=== PATIENT | female | born 1970 | race Caucasian/White ===

== ENCOUNTER 2019-05-02 00:01 | Emergency (ER) | payer OTHER ==
[2019-05-02] MEDS ORDERED: Fentanyl 100 MCG/2 ML VIAL ONE ×2 (00:18→01:00)
[2019-05-02] MEDS ORDERED: Sodium Chloride 0.9% 1,000 ML ONE (00:18)
[2019-05-02] MEDS ORDERED: Ondansetron PF 4 MG/2 ML Vial ONE (00:18)
[2019-05-02] MEDS ORDERED: Meropenem 500 MG VIAL ONE (00:22)
[2019-05-02] MEDS ORDERED: Sodium Chloride 0.9% 250 ML 250 ML ONE (00:26)
[2019-05-02 00:38] LABS: Hemoglobin 11.7 g/dL (12.0-16.0); Hypochromia SLIGHT = 6-15 cells (100X) (0-5/hpf); Lymphocytes 22 % (21-51); MDiff Complete? YES; Mean Corpuscular HGB CONC 30.7 g/dL (32.0-36.0); Mean Corpuscular Hemoglobin 25.7 pg (27.0-31.0); Mean Corpuscular Volume 83.6 fL (78.0-98.0); Mean Platelet Volume 11.3 fL (7.4-10.4); Microcytosis SLIGHT = 6-15 cells (100X) (0-5/hpf); Monocytes 4 % (0-10); Neutrophil 74 % (42-75); Platelet Count 75 thou/uL (130-400); Platelet Morphology Comment Appears Decreased; RBC Distribution Width 15.3 % (11.5-14.5); Red Blood Cell (RBC) Count 4.55 mill/uL (4.20-5.40); White Blood Cell (WBC) Count 2.7 thou/uL (4.8-10.8)
[2019-05-02 00:53] LABS: ALT (SGPT) 25 U/L (8-55); Albumin 3.8 g/dL (3.5-5.0); Alkaline Phosphatase 99 U/L (40-150); Anion Gap 17 mmol/L (10-20); BUN (Urea Nitrogen) 11 mg/dL (7.0-18.7); Bilirubin, Total 1.2 mg/dL (0.2-1.2); Calc. Creatinine Clearance 0 mL/min (70-130); Carbon Dioxide 20 mmol/L (22-29); Chloride 101 mmol/L (98-107); Estimated GFR-MDRD 72; Glucose 391 mg/dL (70-105); Lipase 5 U/L (8-78); Potassium 4.8 mmol/L (3.5-5.1); Protein, Total 7.8 g/dL (6.0-8.3); Sodium 133 mmol/L (136-145)
[2019-05-02] MEDS ORDERED: Lidocaine Viscous Sol 2% 15 ml UD Cup ONE (01:09)
[2019-05-02] MEDS ORDERED: Lidocaine 2% Jelly 5 ML TUBE ONE (01:09)
[2019-05-02] MEDS ORDERED: Benzocaine 20% Spray 60 ML CAN ONE ×2 (01:10→01:24)
[2019-05-02 01:11] LABS: AST (SGOT) 15 U/L (5-34)
--- NOTE | 2019-05-02 08:49 | CT ---
PRELIMINARY REPORT/[facility]/EMERGENCY AFTER HOURS PROCEDURE: EXAM: CT Abdomen and Pelvis Without Contrast EXAM DATE/TIME: 05/02/2019 12:31 AM CLINICAL HISTORY: 48 years old, female; Abdominal pain; Generalized; Prior surgery; Surgery date: 6+ months; Surgery ty pe: Colostomy, cauterization- portal HTN. ; Patient HX: PT with colorectal cancer, colostomy x10 year s; Abdomen has been hurting all over today since around lunch time, it is distended, and n/v TECHNIQUE: Imaging protocol: Computed tomography of the abdomen and pelvis without contrast. Radiation optimizat ion: All CT scans at this facility use at least one of these dose optimization techniques: automated exposure control; mA and/or kV adjustment per patient size (includes targeted exams where dose is matched to clinical indication); or iterative reconstruction. COMPARISON: No relevant prior studies available. FINDINGS: Liver: No solid mass. Gallbladder and bile ducts: No calcified stones. No ductal dilation. Pancreas: No acute pathology. No ductal dilation. Spleen: Advanced splenomegaly at 17 cm. Adrenals: No mass. Kidneys and ureters: No solid mass. No hydronephrosis. Stomach and bowel: See Soft Tissues Finding. Appendix: The appendix is not visualized. Intraperitoneal space: Small volume abdominal and pelvic ascites. Vasculature: No abdominal aortic aneurysm. Lymph nodes: No enlarged lymph nodes. Bladder: Unremarkable as visualized. Reproductive: Uterus has been removed. Bones/joints: Unremarkable. No acute fracture. Soft tissues: Left sided proctocolectomy. Umbilical level colostomy with small parastomal fat contani ng hernia. Dilated stomach and small bowel loops with fluid. Small bowel measuring up to 4.3 cm in di ameter. Decompressed pelvic loops. Findings consistent with partial small bowel obstruction. IMPRESSION: Findings most consistent with mid to distal partial small bowel obstruction. Obstructing mass not see n. Left proctocolectomy with umbilical level ostomy. No free air. Small volume ascites. Splenomegaly. Thank you for allowing us to participate in the care of your patient. Dictated and Authenticated by: Abel Webb MD 05/02/2019 1:02 AM Central Time ([place] & [place]) FINAL REPORT CT OF THE ABDOMEN AND PELVIS WITHOUT CONTRAST: LIZ: 05/02/2019. HISTORY: Abdominal pain. FINDINGS: I agree with the preliminary report. Evaluation of the viscera, bowel, vascular structures, and for lymphadenopathy is markedly limited on this noncontrast-enhanced study. The visualized lung bases ar e unremarkable. Nonspecific small volume free fluid is noted in the perihepatic region. The liver d emonstrates no obvious mass lesion but assessment is limited on noncontrast-enhanced imaging. No mitchell cified gallstones appreciated. Markedly enlarged spleen measures at least 17.7 cm in craniocaudal di mension. There is mild distention of the stomach. Adrenal glands and kidneys grossly unremarkable. There is an ostomy noted in an anterior midline lower abdominal location. There is a parastomal fabrizio ia. There are multiple dilated fluid-filled loops of small bowel within the abdomen/pelvis, suspicio us for a small bowel obstruction, exact transition point uncertain on this exam. There is a questionable colonic wall thickening involving the cecum, ascending colon, and proximal tr ansverse colon. Postoperative changes noted in the pelvis with apparent absence of the distal colon/rectum. There is a retained metallic density in the left lower quadrant. No acute osseous abnormality. IMPRESSION: Markedly limited study without contrast media. There are numerous loops of dilated gas-filled small bowel consistent with small bowel obstruction. The colon in the region of the cecum, ascending colon , and proximal transverse colon appears thickened which may represent nonspecific colitis. There is a parastomal hernia. There is marked splenomegaly. Recommend surgical consultation. Followup imaging with IV and oral contrast is suggested to evaluate for a potential cause of above-described small bowel obstruction. POS: OFF
== END 2019-05-02 01:40 | disposition short-term general hospital (02) ==
LOC: NAV ERS 00:01
DX: K56.609 Unspecified intestinal obstruction, unspecified as to partial versus complete obstruction (principal); K76.6 Portal hypertension; Z85.038 Personal history of other malignant neoplasm of large intestine; Z85.048 Personal history of other malignant neoplasm of rectum, rectosigmoid junction, and anus
CPT/HCPCS: 36415; 74176; 80053; 83605; 83690; 85025; 96361; 96374; 96375; 96376; J2185; J2405; J3010; J7050

== ENCOUNTER 2019-05-14 09:19 | Emergency (ER) | payer OTHER ==
[2019-05-14] MEDS ORDERED: Fentanyl 100 MCG/2 ML VIAL ONE ×2 (09:29→10:35)
[2019-05-14] MEDS ORDERED: Oxymetazoline HCl 0.05% ( 15 ML ) ONE (09:29)
[2019-05-14] MEDS ORDERED: Benzocaine 20% Spray 60 ML CAN ONE (09:29)
[2019-05-14] MEDS ORDERED: Lidocaine Viscous Sol 2% 15 ml UD Cup ONE (09:29)
[2019-05-14] MEDS ORDERED: Sodium Chloride 0.9% 1,000 ML ONE (09:41)
[2019-05-14 10:17] LABS: ALT (SGPT) 21 U/L (8-55); AST (SGOT) 21 U/L (5-34); Albumin 3.7 g/dL (3.5-5.0); Alkaline Phosphatase 81 U/L (40-150); Anion Gap 16 mmol/L (10-20); BUN (Urea Nitrogen) 15 mg/dL (7.0-18.7); Bilirubin, Total 1.2 mg/dL (0.2-1.2); Calc. Creatinine Clearance 0 mL/min (70-130); Calcium 9.5 mg/dL (7.8-10.44); Carbon Dioxide 21 mmol/L (22-29); Chloride 104 mmol/L (98-107); Estimated GFR-MDRD 85; Globulin 3.2 g/dL (2.4-3.5); Glucose 267 mg/dL (70-105); Lipase 5 U/L (8-78); Potassium 3.9 mmol/L (3.5-5.1); Protein, Total 6.9 g/dL (6.0-8.3); Sodium 137 mmol/L (136-145)
[2019-05-14 10:24] LABS: Anisocytosis SLIGHT = 6-15 cells (100X) (0-5/hpf); Eosinophils 1 % (0-10); Hemoglobin 11.8 g/dL (12.0-16.0); Lymphocytes 16 % (21-51); MDiff Complete? YES; Mean Corpuscular HGB CONC 30.4 g/dL (32.0-36.0); Mean Corpuscular Hemoglobin 25.4 pg (27.0-31.0); Mean Corpuscular Volume 83.3 fL (78.0-98.0); Mean Platelet Volume 9.1 fL (7.4-10.4); Monocytes 5 % (0-10); Neutrophil 78 % (42-75); Platelet Count 53 thou/uL (130-400); Platelet Morphology Comment Appears Decreased; RBC Distribution Width 15.4 % (11.5-14.5); Red Blood Cell (RBC) Count 4.64 mill/uL (4.20-5.40)
--- NOTE | 2019-05-14 10:51 | RAD ---
Exam: One view chest 2 views abdomen HISTORY: Abdominal pain FINDINGS: Chest one view: Atherosclerosis of the aortic knob. Normal cardiac silhouette. Lungs and pleural spac es are clear. No pneumothorax or osseous abnormalities Abdomen 2 views: Nasogastric tube terminates in the epigastric region. Nonspecific bowel gas pattern. There is a segment of mildly prominent air-filled loop of small bowel. No differential air-fluid levels. No pneumoperitoneum. No suspicious densities in the abdomen or pelvis. Multiple surgical clip s and coil masses are identified in the abdomen. IMPRESSION: 1. Nonspecific bowel gas pattern. Nonspecific air-filled loop of small bowel in the left hemiabdomen. If there is concern for an obstructive process, consider abdomen and pelvic CT with oral and IV contrast. 2. Acute cardiopulmonary process.
--- NOTE | 2019-05-14 10:53 | RAD ---
Exam: 1 view abdomen HISTORY: Abdominal pain. NG tube placement FINDINGS: Nasogastric tube extends beyond the diaphragm no significant IMPRESSION: Nasogastric tube in the epigastric region.
== END 2019-05-14 11:04 | disposition short-term general hospital (02) ==
LOC: NAV ERS 09:19
DX: K56.609 Unspecified intestinal obstruction, unspecified as to partial versus complete obstruction (principal); R73.03 Prediabetes; K76.6 Portal hypertension; Z85.41 Personal history of malignant neoplasm of cervix uteri; Z85.048 Personal history of other malignant neoplasm of rectum, rectosigmoid junction, and anus; Z79.84 Long term (current) use of oral hypoglycemic drugs; Z79.899 Other long term (current) drug therapy
CPT/HCPCS: 74018; 74022; 80053; 83690; 85025; 96361; 96374; 96376; J3010; J7050

== ENCOUNTER 2019-12-01 00:53 | Emergency (ER) | payer OTHER ==
[2019-12-01] MEDS ORDERED: Ondansetron PF 4 MG/2 ML Vial ONE (02:26)
[2019-12-01] MEDS ORDERED: Morphine 4 MG/ML VIAL ONE (02:26)
[2019-12-01 02:48] LABS: #Lymphocytes 0.4 thou/uL (1.20-3.40); #Monocytes 0.1 thou/uL (0.11-0.59); %Basophils 0.7 % (0.0-1.0); %Eosinophils 0.9 % (0.0-10.0); %Lymphocytes 10.5 % (21.0-51.0); %Monocytes 3.8 % (0.0-10.0); %Neutrophils 84.1 % (42.0-75.0); Anisocytosis SLIGHT = 6-15 cells (100X) (0-5/hpf); Hemoglobin 8.1 g/dL (12.0-16.0); MDiff Complete? YES; Mean Corpuscular HGB CONC 28.2 g/dL (32.0-36.0); Mean Corpuscular Hemoglobin 21.8 pg (27.0-31.0); Mean Corpuscular Volume 77.2 fL (78.0-98.0); Mean Platelet Volume 11.4 fL (7.4-10.4); Microcytosis SLIGHT = 6-15 cells (100X) (0-5/hpf); Ovalocytes SLIGHT = 2-5 cells (100X) (0-1/hpf); Platelet Count 71 thou/uL (130-400); Platelet Morphology Comment Appears Decreased; RBC Distribution Width 18.3 % (11.5-14.5); Red Blood Cell (RBC) Count 3.73 mill/uL (4.20-5.40); White Blood Cell (WBC) Count 3.6 thou/uL (4.8-10.8)
[2019-12-01 02:51] LABS: ALT (SGPT) 19 U/L (8-55); AST (SGOT) 17 U/L (5-34); Albumin 3.1 g/dL (3.5-5.0); Alkaline Phosphatase 103 U/L (40-110); Anion Gap 13 mmol/L (10-20); BUN (Urea Nitrogen) 11 mg/dL (7.0-18.7); Bilirubin, Total 0.7 mg/dL (0.2-1.2); Calc. Creatinine Clearance 0 mL/min (70-130); Calcium 8.7 mg/dL (7.8-10.44); Carbon Dioxide 24 mmol/L (22-29); Chloride 101 mmol/L (98-107); Estimated GFR-MDRD 84; Globulin 3.2 g/dL (2.4-3.5); Glucose 325 mg/dL (70-105); Lipase 4 U/L (8-78); Potassium 4.4 mmol/L (3.5-5.1); Protein, Total 6.3 g/dL (6.0-8.3); Sodium 134 mmol/L (136-145)
[2019-12-01] MEDS ORDERED: Insulin Regular 300 UNITS/3 ML VIAL ONE (04:31)
--- NOTE | 2019-12-01 07:54 | CT ---
PRELIMINARY REPORT/[facility]/EMERGENCY AFTER HOURS PROCEDURE: PROCEDURE: CT Scan Abdomen and Pelvis without IV Contrast Material. HISTORY: Abdomen pain and colorectal neoplasm with colostomy. TECHNIQUE: Axial images were performed with multiplanar reconstructions without IV contrast material. The patient was not given oral contrast material. COMPARISON: None . FINDINGS: Linear scar versus discoid atelectasis at the lung bases. Irregular liver contour consistent with cirrhosis. Splenomegaly at 19 cm. Adrenals and pancreas are unremarkable. Kidneys show no masses or obstruction. Normal biliary tract. Moderate ascites in the abdomen. No pneumoperitoneum. Stranding throughout the mesentery could be r elated to patient's portal hypertension or ascites with peritonitis not excluded. Normal aorta. Some varices upper abdomen. No lymphadenopathy. LEFT lower quadrant colostomy with previous resection of the rectum. No bowel obstruction or inflamm ation. Appendix is not visualized. Pelvis shows no masses. Moderate fluid throughout pelvis. Previous hysterectomy. Normal urinary bl adder. No acute bony abnormality. Stranding in the subcutaneous fat both flanks and lower abdomen and pelvis may be related to dependen t edema . IMPRESSION: Cirrhosis with splenomegaly and ascites. No bowel obstruction or inflammation. Previous resection of the rectum with colostomy LEFT lower quadrant. Dependent edema both flanks and lower abdomen and pelvis. No other acute change identified. ELECTRONICALLY SIGNED BY: Obed Goss MD Dec 01, 2019 4:05:23 AM CDT This report is intended for review by the ordering physician only, in accordance of law. If you recei ve this report in error, please call [facility] at [phone]. FINAL REPORT EMERGENT AFTER HOURS CT OF THE ABDOMEN AND PELVIS WITH CONTRAST: COMPARISON: 05/14/2019. FINDINGS/IMPRESSION: I agree with the findings and impression given in the preliminary report per [facility] physici an. There is cirrhosis with sequelae of portal hypertension. The amount of ascites and soft tissue anasarca has worsened compared to the prior examination.
[2019-12-01] MEDS ORDERED: Iopamidol 370 76% 100 ML VIAL ONE (09:00)
== END 2019-12-01 06:10 | disposition home or self-care (01) ==
LOC: NAV ERS 00:53
DX: R18.8 Other ascites (principal); K74.60 Unspecified cirrhosis of liver; D64.9 Anemia, unspecified; R11.2 Nausea with vomiting, unspecified; Z87.891 Personal history of nicotine dependence
CPT/HCPCS: 74177; 80053; 83690; 85025; 96374; 96375; J1815; J2270; J2405; Q9967

== ENCOUNTER 2020-05-28 09:01 | Emergency (ER) | payer OTHER ==
[~2020-05-28 09:01] MED LIST: Iopamidol 370 76% 100 ML VIAL ONE
[2020-05-28] MEDS ORDERED: Ondansetron PF 4 MG/2 ML Vial ONE (09:24)
[2020-05-28] MEDS ORDERED: Morphine 4 MG/ML VIAL ONE ×2 (09:24→11:11)
[2020-05-28 10:13] LABS: #Eosinphils 0.1 thou/uL (0.0-0.7); #Lymphocytes 0.4 thou/uL (1.20-3.40); #Monocytes 0.2 thou/uL (0.11-0.59); #Neutrophils 2.5 thou/uL (1.40-6.50); %Basophils 0.7 % (0.0-1.0); %Eosinophils 2.1 % (0.0-10.0); %Lymphocytes 12.4 % (21.0-51.0); %Monocytes 5.7 % (0.0-10.0); %Neutrophils 79.1 % (42.0-75.0); ALT (SGPT) 17 U/L (8-55); AST (SGOT) 15 U/L (5-34); Alkaline Phosphatase 94 U/L (40-110); Anion Gap 14 mmol/L (10-20); BUN (Urea Nitrogen) 13 mg/dL (7.0-18.7); Bilirubin, Total 0.8 mg/dL (0.2-1.2); Calc. Creatinine Clearance 0 mL/min (70-130); Calcium 8.8 mg/dL (7.8-10.44); Carbon Dioxide 22 mmol/L (22-29); Chloride 104 mmol/L (98-107); Estimated GFR-MDRD 84; Globulin 3.7 g/dL (2.4-3.5); Glucose 232 mg/dL (70-105); Hemoglobin 8.6 g/dL (12.0-16.0); Lipase 5 U/L (8-78); MDiff Complete? YES; Mean Corpuscular HGB CONC 28.7 g/dL (32.0-36.0); Mean Corpuscular Volume 80.3 fL (78.0-98.0); Mean Platelet Volume 9.5 fL (7.4-10.4); Platelet Count 78 thou/uL (130-400); Protein, Total 6.7 g/dL (6.0-8.3); RBC Distribution Width 18.9 % (11.5-14.5); Red Blood Cell (RBC) Count 3.71 mill/uL (4.20-5.40); Sodium 136 mmol/L (136-145); White Blood Cell (WBC) Count 3.2 thou/uL (4.8-10.8)
[2020-05-28 10:14] LABS: Hypochromia SLIGHT = 6-15 cells (100X) (0-5/hpf)
[2020-05-28 10:15] LABS: Anisocytosis SLIGHT = 6-15 cells (100X) (0-5/hpf); Platelet Morphology Comment Appears Decreased; Poikilocytosis SLIGHT = 6-15 cells (100X) (0-5/hpf); Target Cells SLIGHT = 2-5 cells (100X) (0-1/hpf)
--- NOTE | 2020-05-28 10:38 | CT ---
EXAM: CT ABDOMEN AND PELVIS HISTORY: Trauma pain. Nausea and vomiting, onset yesterday. Evaluate for small bowel obstruction. Sally lyons has a history of cancer. COMPARISON: 12/01/2019 Procedure: Multiple contiguous axial images were obtained and a CT of the abdomen and pelvis with IV contrast. C oronal reformats were performed. FINDINGS: Lower Chest: Dependent atelectatic changes. 0.3 cm solid nodule in the middle lobe. Vessels: Normal caliber aorta. Heart: Cardiomegaly. No significant pericardial fluid Abdomen: Portal vein:Patent. There is prominence of the portal vein and splenic and gastric varices opacities suggesting portal hypertension. Gallbladder: Fluid-filled without evidence of hyper enhancement of the gallbladder wall. Liver: Mild nodularity suggesting cirrhotic change. No enhancing hepatic masses. Pancreas: within normal limits. Spleen: Markedly large spleen measuring 18.8 cm Adrenals: within normal limits. Kidneys: Enhancement. Moderate to severe bilateral hydronephrosis. Peritoneum: Extensive ascites within the abdomen. Bowel: Limited evaluation by the lack of oral contrast. There is edema involving the gastric serosa. Extensive bowel dilatation. There appears to be fecalization involving the mid small bowel loops. The distal small bowel loops are slightly more decompressed. The exact transition point is presumed t o be in the lower abdomen. There is fecal material in a nondistended, nondilated colon. There is a left lower quadrant diverting colostomy. Mesentery and Retroperitoneum: No enlarged mesenteric or retroperitoneal lymph nodes. Abdominal Wall: Diffuse anasarca. Left lower quadrant colostomy with herniation of fat and segment of small bowel through the defect. Pelvis: Reproductive Organs: Surgically absent uterus. Pelvis: There appears be postsurgical change in the region of the rectum. There is free fluid in the pelvis.. Bladder: Decompressed limiting evaluation Bones: within normal limits. IMPRESSION: 1. Cirrhosis 2. Anasarca/subcutaneous emphysema 3. Splenomegaly 4. Edema involving the serosa of the stomach. There is extensive dilatation of multiple small bowel l oops with fecalization. Findings are worrisome for high-grade small bowel obstruction. Transition point appears to be in the lower abdomen. 5. Left-sided diverting colostomy.
[2020-05-28] MEDS ORDERED: Benzocaine 20% Spray 60 ML CAN ONE (11:02)
[2020-05-28] MEDS ORDERED: Lidocaine Viscous Sol 2% 15 ml UD Cup ONE (11:02)
[2020-05-28] MEDS ORDERED: Oxymetazoline HCl 0.05% (30 ML BOT) ONE (11:02)
[2020-05-28 11:44] LABS: Bilirubin Negative (Negative); Blood, Urine Moderate (Negative); Clarity Clear (Clear); Glucose, Urine (Dipstick) Negative (Negative); Ketone, Urine Negative (Negative); Leukocyte Negative (Negative); Nitrite Negative (Negative); Protein, Urine (Dipstick) 100 mg/dL (Neg-Trace); Urobilinogen 0.2 mg/dL (Less than 2); pH, Urine 5.5 (5.0-9.0)
[2020-05-28 11:49] LABS: Bacteria/HPF Rare-Few HPF (None Seen); Mucous/LPF 1+ LPF (<2+); Squamous Epithelial 0-3 HPF (0-3); WBC/HPF 0-3 HPF (0-3)
== END 2020-05-28 14:35 | disposition short-term general hospital (02) ==
LOC: NAV ERS 09:01
DX: K56.609 Unspecified intestinal obstruction, unspecified as to partial versus complete obstruction (principal); R73.03 Prediabetes; Z87.891 Personal history of nicotine dependence; Z79.4 Long term (current) use of insulin; Z79.899 Other long term (current) drug therapy; Z93.3 Colostomy status
CPT/HCPCS: 74177; 80053; 81003; 81015; 83690; 85025; 94760; 96361; 96374; 96375; 96376; J2270; J2405; Q9967

== ENCOUNTER 2021-05-20 16:26 | Emergency (ER) | payer OTHER ==
[2021-05-20 18:12] LABS: Base Excess-Venous -0.6 mmol/L (-2.0 to 3.0); Bicarbonate (HCO3v) 25.5 mmol/L (22.0-28.0); Calcium, Ionized 1.11 mmol/L (1.15-1.33); Chloride 97 mmol/L (98-107); Hemoglobin - Calc 11.1 g/dL (12.0-16.0); Potassium 4.3 mmol/L (3.5-5.1); Sodium 135 mmol/L (138-145); T. Carbon Dioxide 26.9 mmol/L (22.0-28.0); vO2 Saturation-calc 87.4 % (60.0-85.0)
[2021-05-20 18:14] LABS: Bilirubin Small (Negative); Blood, Urine Large (Negative); Clarity Cloudy (Clear); Glucose, Urine (Dipstick) 100 mg/dL (Negative); Ketone, Urine Trace mg/dL (Negative); Leukocyte Large (Negative); Nitrite Positive (Negative); Protein, Urine (Dipstick) > or equal to 300 mg/dL (Neg-Trace); Specific Gravity, Urine 1.025 (1.005-1.030); Urobilinogen 0.2 mg/dL (Less than 2)
[2021-05-20 18:17] LABS: ALT (SGPT) 21 U/L (8-55); AST (SGOT) 28 U/L (5-34); Alkaline Phosphatase 108 U/L (40-110); Anion Gap 17 mmol/L (10-20); BUN (Urea Nitrogen) 10 mg/dL (9.8-20.1); Bilirubin, Total 0.6 mg/dL (0.2-1.2); Calc. Creatinine Clearance 0 mL/min (70-130); Calcium 8.8 mg/dL (7.8-10.44); Carbon Dioxide 21 mmol/L (22-29); Chloride 98 mmol/L (98-107); Globulin 4.3 g/dL (2.4-3.5); Glucose 257 mg/dL (70-105); Potassium 4.2 mmol/L (3.5-5.1); Protein, Total 7.3 g/dL (6.0-8.3); Sodium 132 mmol/L (136-145)
[2021-05-20 18:20] LABS: WBC/HPF 21-50 HPF (0-3)
[2021-05-20 18:21] LABS: Bacteria/HPF 3+ HPF (None Seen); Mucous/LPF 2+ LPF (<2+); Yeast-Budding 2+ HPF (None Seen)
[2021-05-20 18:35] LABS: Bilirubin Moderate (Negative); Blood, Urine Large (Negative); Clarity Cloudy (Clear); Glucose, Urine (Dipstick) 100 mg/dL (Negative); Ketone, Urine 15 mg/dL (Negative); Leukocyte Large (Negative); Nitrite Positive (Negative); Protein, Urine (Dipstick) > or equal to 300 mg/dL (Neg-Trace)
[2021-05-20 18:36] LABS: pH, Urine Greater/Equal 9.0 (5.0-9.0)
[2021-05-20] MEDS ORDERED: Sodium Chloride 0.9% 1,000 ML ONE ×2 (18:42→20:08)
[2021-05-20] MEDS ORDERED: Fentanyl 100 MCG/2 ML VIAL ONE ×2 (18:42→21:52)
[2021-05-20 18:49] LABS: #Lymphocytes 0.4 thou/uL (1.20-3.40); #Monocytes 0.1 thou/uL (0.11-0.59); #Neutrophils 1.6 thou/uL (1.40-6.50); %Basophils 0.5 % (0.0-1.0); %Eosinophils 0.1 % (0.0-10.0); %Lymphocytes 19.1 % (21.0-51.0); %Monocytes 4.6 % (0.0-10.0); %Neutrophils 75.7 % (42.0-75.0); Hemoglobin 9.6 g/dL (12.0-16.0); Mean Corpuscular HGB CONC 28.8 g/dL (32.0-36.0); Mean Corpuscular Hemoglobin 21.4 pg (27.0-31.0); Mean Corpuscular Volume 74.3 fL (78.0-98.0); Mean Platelet Volume 11.3 fL (7.4-10.4); Platelet Count 56 thou/uL (130-400); RBC Distribution Width 18.6 % (11.5-14.5); White Blood Cell (WBC) Count 2.1 thou/uL (4.8-10.8)
[2021-05-20 18:55] LABS: Macrocytosis SLIGHT = 6-15 cells (100X) (0-5/hpf)
[2021-05-20 18:57] LABS: Ovalocytes SLIGHT = 2-5 cells (100X) (0-1/hpf); Schistocytes SLIGHT = 2-5 cells (100X) (0-1/hpf)
[2021-05-20 18:58] LABS: Platelet Morphology Comment Appears Decreased
[2021-05-20] MEDS ORDERED: Sodium Chloride 0.9% 250 ML 250 ML ONE (20:10)
[2021-05-20] MEDS ORDERED: Acetaminophen 500 MG TAB ONE (22:16)
[2021-05-20 23:36] LABS: SARS-CoV-2 NAA Rapid Test DETECTED (NotDetected)
[2021-05-21] MEDS ORDERED: Fentanyl 100 MCG/2 ML VIAL ONE (00:09)
[2021-05-21] MEDS ORDERED: Sodium Chloride 0.9% 1,000 ML ONE (00:56)
== END 2021-05-21 01:18 | disposition short-term general hospital (02) ==
LOC: NAV ERS 16:26
DX: U07.1 COVID-19 (principal); N10 Acute pyelonephritis; E11.9 Type 2 diabetes mellitus without complications; Z79.4 Long term (current) use of insulin; Z79.899 Other long term (current) drug therapy
CPT/HCPCS: 0240U; 36416; 71045; 80053; 81003; 81015; 82330; 82435; 82803; 83605; 84132; 84295; 84484; 85014; 85025; 87040; 87077; 87086; 87186; 96365; 96367; 96375; 96376; J1956; J3010; J3370; J7050

== ENCOUNTER 2022-08-13 16:58 | Emergency (ER) | payer OTHER ==
[2022-08-13] MEDS ORDERED: Morphine 4 MG/ML VIAL ONE (17:19)
[2022-08-13] MEDS ORDERED: Morphine 2 MG/ML VIAL ONE (17:19)
[2022-08-13] MEDS ORDERED: Ondansetron PF 4 MG/2 ML Vial ONE (17:40)
[2022-08-13 17:47] LABS: #Basophils 0.1 thou/uL (0.0-0.2); #Lymphocytes 0.5 thou/uL (1.20-3.40); #Monocytes 0.4 thou/uL (0.11-0.59); #Neutrophils 6.3 thou/uL (1.40-6.50); %Basophils 0.9 % (0.0-1.0); %Eosinophils 0.6 % (0.0-10.0); %Lymphocytes 6.3 % (21.0-51.0); %Monocytes 4.9 % (0.0-10.0); %Neutrophils 87.3 % (42.0-75.0); Hemoglobin 6.9 g/dL (12.0-16.0); Mean Corpuscular HGB CONC 29.2 g/dL (32.0-36.0); Mean Corpuscular Hemoglobin 22.4 pg (27.0-31.0); Mean Corpuscular Volume 76.9 fl (78.0-98.0); Mean Platelet Volume 9.3 fL (7.4-10.4); Platelet Count 125 10x3/uL (130-400); RBC Distribution Width 17.6 % (11.5-14.5); Red Blood Cell (RBC) Count 3.09 mill/uL (4.20-5.40); White Blood Cell (WBC) Count 7.2 10x3/uL (4.8-10.8)
[2022-08-13 17:59] LABS: ALT (SGPT) 27 U/L (8-55); AST (SGOT) 31 U/L (5-34); Albumin 2.9 g/dL (3.5-5.0); Alkaline Phosphatase 103 U/L (40-110); Anion Gap 15 mmol/L (10-20); BUN (Urea Nitrogen) 23 mg/dL (9.8-20.1); Bilirubin, Total 0.7 mg/dL (0.2-1.2); Calc. Creatinine Clearance 0 mL/min (70-130); Calcium 8.8 mg/dL (7.8-10.44); Carbon Dioxide 22 mmol/L (22-29); Chloride 99 mmol/L (98-107); Estimated GFR 50; Globulin 3.2 g/dL (2.4-3.5); Glucose 190 mg/dL (70-105); Protein, Total 6.1 g/dL (6.0-8.3); Sodium 132 mmol/L (136-145)
[2022-08-13 18:05] LABS: Bilirubin Negative (Negative); Blood, Urine Small (Negative); Glucose, Urine (Dipstick) Negative (Negative); Ketone, Urine Trace mg/dL (Negative); Leukocyte Large (Negative); Nitrite Negative (Negative); Protein, Urine (Dipstick) 100 mg/dL (Neg-Trace); Specific Gravity, Urine 1.025 (1.005-1.030); Urobilinogen 0.2 mg/dL (Less than 2); pH, Urine 6.5 (5.0-9.0)
[2022-08-13 18:07] LABS: Bilirubin Negative (Negative); Blood, Urine Negative (Negative); Glucose, Urine (Dipstick) Negative (Negative); Ketone, Urine Trace mg/dL (Negative); Leukocyte Small (Negative); Nitrite Negative (Negative); Protein, Urine (Dipstick) 100 mg/dL (Neg-Trace); Specific Gravity, Urine 1.015 (1.005-1.030); Urobilinogen 0.2 mg/dL (Less than 2); pH, Urine 8.5 (5.0-9.0)
[2022-08-13 18:09] LABS: Clarity Hazy (Clear)
[2022-08-13 18:09] LABS: Clarity Hazy (Clear)
[2022-08-13 18:19] LABS: Bacteria/HPF 3+ HPF (None Seen); Squamous Epithelial 0-3 HPF (0-3); WBC/HPF Greater Than 50 HPF (0-3)
[2022-08-13 18:20] LABS: Bacteria/HPF 2+ HPF (None Seen); RBC/HPF 0-3 HPF (0-3); Squamous Epithelial 0-3 HPF (0-3); WBC/HPF 0-3 HPF (0-3)
[2022-08-13 18:21] LABS: Triple Phosphate Crystal 2+ HPF (None Seen)
[2022-08-13] MEDS ORDERED: Sodium Chloride 0.9% 100 ML ONE (20:02)
[2022-08-13] MEDS ORDERED: cefTRIAXone\\ROCEPHIN 2 GM VIAL ONE (20:02)
== END 2022-08-13 21:18 | disposition short-term general hospital (02) ==
LOC: NAV ERS 16:58
DX: K56.609 Unspecified intestinal obstruction, unspecified as to partial versus complete obstruction (principal); N10 Acute pyelonephritis; I10 Essential (primary) hypertension; E11.9 Type 2 diabetes mellitus without complications; Z79.899 Other long term (current) drug therapy; Z79.4 Long term (current) use of insulin
CPT/HCPCS: 74177; 80053; 81003; 81015; 83605; 85025; 87077; 87086; 87186; 96365; 96375; J0696; J2270; J2405; J3490; Q9967